=== PATIENT | male | born 1960 | race African-American/Black ===

== ENCOUNTER 2019-02-05 09:41 | Emergency (ER) | payer OTHER ==
[~2019-02-05] VITALS: Ht 170.2 cm; Wt 97.5 kg
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
[2019-02-05] MEDS ORDERED: DIPHTH,PERTUSS(ACELL),TET TOX 0.5 ML DISP.SYRIN. VAX IM ONE (12:15)
[2019-02-05] MEDS ORDERED: HYDROcodone/APAP 10/325 1 TAB TABLET PO ONE (12:15)
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
[2019-02-05] MEDS ORDERED: TRAM50TA PO (12:20)
[2019-02-05] MEDS ORDERED: CYCL10TA2 PO (12:20)
[2019-02-05 12:26] VITALS: BP 168/87
--- NOTE | 2019-02-05 13:02 | RAD ---
RIGHT HAND, VIEWS 3 Indication: Trauma Findings: There is age indeterminant nondisplaced avulsion fracture at the dorsal base of the fifth distal phalanx. No significant soft tissue swelling of the fifth finger is seen. The mineralization is normal and the bony articulations are maintained. There is a punctate radiodensity medial to the fourth DIP joint. No donor site is seen. Tiny radiopaque foreign body is possible. IMPRESSION: Age-indeterminate nondisplaced avulsion fracture at the dorsal base of the fifth distal phalanx. Electronically signed by: Durga Tavares MD (02/05/2019 12:59 PM) [id number]
== END 2019-02-05 12:56 | disposition home or self-care (01) ==
LOC: ER 09:41
DX: S01.81XA Laceration without foreign body of other part of head, initial encounter (principal); S62.631A Displaced fracture of distal phalanx of left index finger, initial encounter for closed fracture; M79.641 Pain in right hand; M54.2 Cervicalgia; R51 Headache; E78.00 Pure hypercholesterolemia, unspecified; V29.49XA Motorcycle driver injured in collision with other motor vehicles in traffic accident, initial encounter; Y93.89 Activity, other specified; Y92.488 Other paved roadways as the place of occurrence of the external cause; Y99.8 Other external cause status
CPT/HCPCS: 12011; 29125; 70450; 71045; 72125; 73130; 90471; 90715; 99284